=== PATIENT | female | born 2000 | race Caucasian/White ===

== ENCOUNTER 2021-08-12 16:40 | Emergency (ER) | payer OTHER ==
[~2021-08-12 16:40] MED LIST: FLOMAX0.4 MG PO; KEFLEX250 MG PO; NORCO 5-325 TA1 EACH PO; ONDANSETRON ODT4 MG PO; TRANDATE100 MG PO
[2021-08-12 17:37] LABS: BASOPHIL 0.4 % (0-2); EOSINOPHIL 1.3 % (0-5); HCT 42.7 % (37.0-47.0); HGB 14.5 g/dl (12.5-16.0); LYMPHOCYTE 13.6 % (15-48); MCH 30.7 pg (25.0-31.0); MCV 90.5 fL (78.0-100.0); MONOCYTE 6.5 % (0-12); MPV 10.9 fL (6.0-9.5); NEUTROPHIL 77.7 % (41-80); NRBC 0; PLT 388 K/uL (150-400); RBC 4.72 M/uL (4.20-5.40); RDW 12.5 % (11.5-14.0); WBC 17.3 K/uL (4.0-10.5)
[2021-08-12 17:40] LABS: BILIRUBIN NEGATIVE (NEGATIVE); BLOOD 1+ Ery/uL (NEGATIVE); CLARITY CLEAR (CLEAR); COLOR YELLOW (YELLOW); GLUCOSE (U) NORMAL (NORMAL); LEUKOCYTES NEGATIVE Leu/uL (NEGATIVE); NITRITE POSITIVE (NEGATIVE); PROTEIN NEGATIVE (NEGATIVE); SPECIFIC GRAVITY >=1.030 (1.001-1.030); UROBILINOGEN 0.2 mg/dL (0.2-1.0)
[2021-08-12 17:55] LABS: AMORPHOUS URATES CRYSTALS MODERATE; BACTERIA 1+; MUCOUS MODERATE
[2021-08-12 18:02] LABS: BILIRUBIN - TOTAL 0.3 mg/dL (0.2-1.0); BUN/CREAT RATIO (CALC) 11.5 RATIO; CREATININE 0.78 mg/dL (0.51-0.95); GLOBULIN (CALCULATION) 4.3 g/dL; POTASSIUM 4.1 mmol/L (3.5-5.1); TOTAL PROTEIN 8.3 g/dL (6.4-8.2)
[2021-08-12 19:40] LABS: LACTIC ACID 0.7 mmol/L (0.4-1.9)
[2021-08-12] MEDS ORDERED: FLOMAX 0.4 MG0.4 MG PO ×2 (20:08→20:13)
[2021-08-12] MEDS ORDERED: ZOFRAN4 M1 PO ×2 (20:08→20:13)
[2021-08-12] MEDS ORDERED: NORCO 5-325 TA1 EACH PO ×2 (20:08→20:11)
[2021-08-12] MEDS ORDERED: BACTRIM DS TAB1 EACH PO ×2 (20:08→20:13)
== END 2021-08-12 20:31 | disposition home or self-care (01) ==
LOC: FER 16:40
PROVIDERS: Nurse Practitioner Family
DX: N13.6 Pyonephrosis (principal); F17.290 Nicotine dependence, other tobacco product, uncomplicated
CPT/HCPCS: 36415; 80053; 81001; 83605; 85025; 87088; J0696; J1885; J2270; J2405; J7030

== ENCOUNTER 2021-11-24 14:03 | Emergency (ER) | payer OTHER ==
[~2021-11-24 14:03] MED LIST changes: +BACTRIM DS TAB1 EACH PO; +FLOMAX 0.4 MG0.4 MG PO; +ZOFRAN4 M1 PO
[2021-11-24 15:55] LABS: BASOPHIL 0.5 % (0-2); HCT 39.2 % (37.0-47.0); HGB 13.2 g/dl (12.5-16.0); LYMPHOCYTE 22.1 % (15-48); MCH 30.8 pg (25.0-31.0); MCHC 33.7 g/dL (32.0-36.0); MCV 91.6 fL (78.0-100.0); MONOCYTE 7.9 % (0-12); NEUTROPHIL 65.7 % (41-80); NRBC 0; PLT 314 K/uL (150-400); RBC 4.28 M/uL (4.20-5.40); RDW 12.7 % (11.5-14.0); WBC 11.8 K/uL (4.0-10.5)
[2021-11-24 15:56] LABS: BILIRUBIN NEGATIVE (NEGATIVE); BLOOD 3+ Ery/uL (NEGATIVE); CLARITY CLEAR (CLEAR); COLOR YELLOW (YELLOW); GLUCOSE (U) NORMAL (NORMAL); LEUKOCYTES NEGATIVE Leu/uL (NEGATIVE); NITRITE NEGATIVE (NEGATIVE); PROTEIN NEGATIVE (NEGATIVE); SPECIFIC GRAVITY <=1.005 (1.001-1.030); UROBILINOGEN 0.2 mg/dL (0.2-1.0)
[2021-11-24 16:05] LABS: BACTERIA TRACE; URINARY WBC RARE
[2021-11-24 16:07] LABS: BUN/CREAT RATIO (CALC) 17.5 RATIO; CREATININE 0.57 mg/dL (0.51-0.95); POTASSIUM 3.9 mmol/L (3.5-5.1)
== END 2021-11-24 16:58 | disposition home or self-care (01) ==
LOC: FER 14:03
PROVIDERS: Nurse Practitioner Family
DX: O20.0 Threatened abortion (principal); Z3A.01 Less than 8 weeks gestation of pregnancy
CPT/HCPCS: 36415; 80048; 81001; 84702; 85025; 86900; 86901; 99284

== ENCOUNTER 2021-12-03 13:48 | Emergency (ER) | payer OTHER ==
[2021-12-03 14:41] LABS: BASOPHIL 0.6 % (0-2); EOSINOPHIL 1.5 % (0-5); HCT 42.6 % (37.0-47.0); HGB 14.6 g/dl (12.5-16.0); LYMPHOCYTE 23.4 % (15-48); MCHC 34.3 g/dL (32.0-36.0); MCV 90.4 fL (78.0-100.0); MONOCYTE 8.1 % (0-12); MPV 10.9 fL (6.0-9.5); NEUTROPHIL 65.9 % (41-80); NRBC 0; PLT 375 K/uL (150-400); RBC 4.71 M/uL (4.20-5.40); RDW 12.6 % (11.5-14.0); WBC 10.8 K/uL (4.0-10.5)
[2021-12-03 14:57] LABS: BUN/CREAT RATIO (CALC) 19.4 RATIO; CREATININE 0.62 mg/dL (0.51-0.95); POTASSIUM 4.1 mmol/L (3.5-5.1)
== END 2021-12-03 17:00 | disposition home or self-care (01) ==
LOC: FER 13:48
PROVIDERS: Nurse Practitioner Family
DX: O20.0 Threatened abortion (principal); Z3A.01 Less than 8 weeks gestation of pregnancy
CPT/HCPCS: 36415; 76801; 80048; 84702; 85025